=== PATIENT | female | born 1950 | race Caucasian/White ===

== ENCOUNTER 2021-11-09 19:13 | Inpatient (IN) ==
[2021-11-09] MEDS ORDERED: SODIUM CHLORIDE 0.9% 1,000 ML IV STA (19:56)
[2021-11-09 20:50] LABS: Bilirubin,Urine Negative (Negative); Blood, Urine Small mg/dL (Negative); Glucose,Urine (UA) >=500 mg/dL (Negative); Ketones,Urine Negative (Negative); Nitrite,Urine Negative (Negative); Protein,Urine >=500 MG/DL; RBC,Urine <1 /HPF (0-4); Urine Appearance CLEAR (Clear); Urine Color Yellow (Yellow); Urine Specific Gravity 1.028 (1.001-1.035); Urine Urobilinogen < 2.0 EU/DL (<2.0)
[2021-11-09 21:04] LABS: Barbiturates Screen,Urine Negative (Negative); Benzodiazepines Screen,Urine Negative (Negative); Cannabinoid Screen,Urine Negative (Negative); Opiate Screen,Urine Negative (Negative); Phencyclidine Screen,Urine Negative (Negative)
[2021-11-09 21:08] LABS: Alanine Aminotransferase 12 U/L (13-56); Albumin 2.9 G/DL (3.4-5.0); Alkaline Phosphatase 48 U/L (45-117); Aspartate Amino Transferase 15 U/L (0-37); Blood Urea Nitrogen 34 MG/DL (7-18); Calcium 8.5 MG/DL (8.5-10.1); Carbon Dioxide 24 MMOL/L (21-32); Estimated Glom Filtration Rate 35 ML/MIN; Glucose 349 MG/DL (74-106); Osmolality,Calculated 296.7 MOS/KG (273-304); Sodium 138 MMOL/L (136-145); Total Protein 7.4 G/DL (6.4-8.2)
[2021-11-09] MEDS ORDERED: cefTRIAXone 1,000 MG in SODIUM CHLORIDE 0.9% 100 ML IV STA (21:18)
[2021-11-09] MEDS ORDERED: DEXAMETHASONE 4 MG/1 ML VIAL IV STA (22:22)
[2021-11-09 22:51] LABS: Basophils % 0.2 % (0.0-0.8); Hematocrit 44.2 VOL% (35.7-47.0); Hemoglobin 13.7 GM/DL (12.0-16.0); Immature Granulocytes % 0.5 %; Immature Granulocytes Absolute 0.03 #; Lymphocytes # 1.2 10*3/uL (1.4-4.0); Lymphocytes % 20.2 % (21.3-54.2); Mean Corpuscular Volume 90.9 FL (87-102); Mean Platelet Volume 10.2 FL (9.6-12.0); Monocytes % 7.9 % (1.7-12.7); Neutrophils % 71.2 % (38.7-73.9); Platelet Count 213 T/CUMM (130-400); Red Blood Count 4.86 MC/CUMM (3.8-5.5); Red Cell Distribution Width 14.4 % (9.3-17.3); White Blood Count 5.7 T/CUMM (4-12)
[2021-11-09] MEDS ORDERED: ENOXAPARIN 80 MG/0.8 ML SYRINGE SUBCUT ONE (23:29)
[2021-11-09] MEDS ORDERED: DEXTROSE 10% 250 ML BAG IV PRN (23:31)
[2021-11-09] MEDS ORDERED: ACETAMINOPHEN 325 MG TABLET PO PRN (23:31)
[2021-11-09] MEDS ORDERED: guaiFENesin/DM ER 600-30 MG TABLET PO PRN (23:31)
[2021-11-09] MEDS ORDERED: NICOTINE 21 MG/24 HR PATCH TRANSDERM PRN (23:31)
[2021-11-09] MEDS ORDERED: diphenhydrAMINE CAP 25 MG CAPSULE PO PRN (23:31)
[2021-11-09] MEDS ORDERED: ONDANSETRON 4 MG/2 ML VIAL IV PRN (23:31)
[2021-11-09] MEDS ORDERED: hydrALAZINE 20 MG/1 ML VIAL IV PRN (23:31)
[2021-11-09] MEDS ORDERED: ZALEPLON 5 MG CAPSULE PO PRN (23:31)
[2021-11-09] MEDS ORDERED: GLUCAGON 1 MG VIAL IM PRN (23:31)
[2021-11-10] MEDS ORDERED: ALBUTEROL INHALER 18 GM INH PRN (00:20)
[2021-11-10] MEDS: SODIUM CHLORIDE 0.9% 1,000 ML IV SCH ×2 (02:53→15:24)
[2021-11-10] MEDS: AZITHROMYCIN INJ 500 MG in SODIUM CHLORIDE 0.9% 250 ML IV SCH (02:55)
[2021-11-10 03:24] LABS: Basophils % 0.2 % (0.0-0.8); Hematocrit 41.1 VOL% (35.7-47.0); Hemoglobin 13.1 GM/DL (12.0-16.0); Immature Granulocytes % 0.2 %; Immature Granulocytes Absolute 0.01 #; Lymphocytes # 1.2 10*3/uL (1.4-4.0); Lymphocytes % 25.2 % (21.3-54.2); Mean Corpuscular HGB Conc 31.9 GM/DL (32-36); Mean Corpuscular Volume 89.2 FL (87-102); Mean Platelet Volume 10.1 FL (9.6-12.0); Monocytes % 8.6 % (1.7-12.7); Neutrophils % 65.8 % (38.7-73.9); Platelet Count 250 T/CUMM (130-400); Red Blood Count 4.61 MC/CUMM (3.8-5.5); Red Cell Distribution Width 14.2 % (9.3-17.3); White Blood Count 4.8 T/CUMM (4-12)
[2021-11-10 03:45] LABS: Calcium 8.9 MG/DL (8.5-10.1); Osmolality,Calculated 296.3 MOS/KG (273-304); Potassium 4.2 MMOL/L (3.5-5.1)
[2021-11-10 08:30] LABS: Ferritin 141.6 ng/mL (8-252)
[2021-11-10] MEDS ORDERED: REMDESIVIR 200 MG in SODIUM CHLORIDE 0.9% 210 ML IV ONE (09:00)
[2021-11-10] MEDS: ASCORBIC ACID 500 MG TABLET PO SCH ×2 (09:03→21:20)
[2021-11-10] MEDS: FAMOTIDINE 20 MG TABLET PO SCH ×2 (09:03→21:20)
[2021-11-10] MEDS: CHOLECALCIFEROL 1,000 UNIT TABLET PO SCH (09:03)
[2021-11-10] MEDS: DEXAMETHASONE 4 MG/1 ML VIAL IV SCH (09:04)
[2021-11-10] MEDS: CETIRIZINE 10 MG TABLET PO SCH (09:04)
[2021-11-10] MEDS: PANTOPRAZOLE 40 MG TABLET PO SCH (09:04)
[2021-11-10] MEDS: ZINC GLUCONATE 50 MG TABLET PO SCH (09:04)
[2021-11-10] MEDS: amLODIPine 10 MG TABLET PO SCH (09:04)
[2021-11-10] MEDS: INSULIN REGULAR 100 UNIT/ML SUBCUT SCH ×3 (12:28→22:00)
[2021-11-10] MEDS: ALBUTEROL INHALER 18 GM INH SCH (18:05)
[2021-11-10] MEDS ORDERED: INSULIN GLARGINE 100 UNIT/ML SUBCUT SCH (21:00)
[2021-11-10] MEDS: QUEtiapine 25 MG TABLET PO SCH (21:20)
[2021-11-10] MEDS: MELATONIN 3 MG TABLET PO SCH (21:20)
[2021-11-10] MEDS: DONEPEZIL 10 MG TABLET PO SCH (21:20)
[2021-11-11] MEDS: cefTRIAXone 1,000 MG in SODIUM CHLORIDE 0.9% 100 ML IV SCH ×2 (00:21→22:16)
[2021-11-11] MEDS: ALBUTEROL INHALER 18 GM INH SCH ×4 (00:21→16:50)
[2021-11-11] MEDS: AZITHROMYCIN INJ 500 MG in SODIUM CHLORIDE 0.9% 250 ML IV SCH (01:09)
[2021-11-11] MEDS: SODIUM CHLORIDE 0.9% 1,000 ML IV SCH ×2 (01:10→14:31)
[2021-11-11 06:05] LABS: Hematocrit 36.1 VOL% (35.7-47.0); Hemoglobin 11.7 GM/DL (12.0-16.0); Immature Granulocytes % 0.2 %; Immature Granulocytes Absolute 0.01 #; Lymphocytes # 0.8 10*3/uL (1.4-4.0); Lymphocytes % 19.6 % (21.3-54.2); Mean Corpuscular HGB Conc 32.4 GM/DL (32-36); Mean Corpuscular Volume 88.5 FL (87-102); Mean Platelet Volume 11.1 FL (9.6-12.0); Monocytes % 11.8 % (1.7-12.7); Neutrophils % 68.4 % (38.7-73.9); Platelet Count 278 T/CUMM (130-400); Red Blood Count 4.08 MC/CUMM (3.8-5.5); Red Cell Distribution Width 13.9 % (9.3-17.3); White Blood Count 4.2 T/CUMM (4-12)
[2021-11-11 06:37] LABS: Alanine Aminotransferase 9 U/L (13-56); Albumin 2.3 G/DL (3.4-5.0); Alkaline Phosphatase 40 U/L (45-117); Aspartate Amino Transferase 11 U/L (0-37); Bilirubin,Total < 0.39 MG/DL (0.20-1.00); Blood Urea Nitrogen 32 MG/DL (7-18); Calcium 8.7 MG/DL (8.5-10.1); Carbon Dioxide 22 MMOL/L (21-32); Estimated Glom Filtration Rate 52 ML/MIN; Ferritin 175.3 ng/mL (8-252); Glucose 168 MG/DL (74-106); Osmolality,Calculated 289.4 MOS/KG (273-304); Potassium 3.8 MMOL/L (3.5-5.1); Sodium 140 MMOL/L (136-145); Total Protein 6.6 G/DL (6.4-8.2)
[2021-11-11] MEDS: INSULIN REGULAR 100 UNIT/ML SUBCUT SCH ×4 (09:14→22:14)
[2021-11-11] MEDS: REMDESIVIR 100 MG in SODIUM CHLORIDE 0.9% 100 ML IV SCH (09:46)
[2021-11-11] MEDS: CHOLECALCIFEROL 1,000 UNIT TABLET PO SCH (09:47)
[2021-11-11] MEDS: DEXAMETHASONE 4 MG/1 ML VIAL IV SCH (09:47)
[2021-11-11] MEDS: QUEtiapine 25 MG TABLET PO SCH ×2 (09:48→22:15)
[2021-11-11] MEDS: amLODIPine 10 MG TABLET PO SCH (09:48)
[2021-11-11] MEDS: CETIRIZINE 10 MG TABLET PO SCH (09:48)
[2021-11-11] MEDS: ASCORBIC ACID 500 MG TABLET PO SCH ×2 (09:48→22:14)
[2021-11-11] MEDS: PANTOPRAZOLE 40 MG TABLET PO SCH (09:48)
[2021-11-11] MEDS: FAMOTIDINE 20 MG TABLET PO SCH ×2 (09:49→22:14)
[2021-11-11] MEDS: FENOFIBRATE 145 MG TABLET PO SCH (09:53)
[2021-11-11] MEDS: ZINC GLUCONATE 50 MG TABLET PO SCH (09:53)
[2021-11-11] MEDS ORDERED: INSULIN GLARGINE 100 UNIT/ML SUBCUT SCH ×2 (21:00)
[2021-11-11] MEDS: DONEPEZIL 10 MG TABLET PO SCH (22:13)
[2021-11-11] MEDS: MELATONIN 3 MG TABLET PO SCH (22:14)
[2021-11-12] MEDS: AZITHROMYCIN INJ 500 MG in SODIUM CHLORIDE 0.9% 250 ML IV SCH (01:00)
[2021-11-12 05:07] LABS: Hematocrit 39.2 VOL% (35.7-47.0); Hemoglobin 12.7 GM/DL (12.0-16.0); Immature Granulocytes % 0.4 %; Immature Granulocytes Absolute 0.02 #; Lymphocytes # 0.9 10*3/uL (1.4-4.0); Mean Corpuscular HGB Conc 32.4 GM/DL (32-36); Mean Corpuscular Volume 87.5 FL (87-102); Mean Platelet Volume 10.6 FL (9.6-12.0); Monocytes % 9.1 % (1.7-12.7); Neutrophils % 73.5 % (38.7-73.9); Platelet Count 306 T/CUMM (130-400); Red Blood Count 4.48 MC/CUMM (3.8-5.5); Red Cell Distribution Width 13.9 % (9.3-17.3); White Blood Count 5.3 T/CUMM (4-12)
[2021-11-12 05:37] LABS: Alanine Aminotransferase < 9 U/L (13-56); Albumin 2.2 G/DL (3.4-5.0); Alkaline Phosphatase 39 U/L (45-117); Aspartate Amino Transferase 14 U/L (0-37); Bilirubin,Total < 0.39 MG/DL (0.20-1.00); Blood Urea Nitrogen 25 MG/DL (7-18); Calcium 8.5 MG/DL (8.5-10.1); Carbon Dioxide 22 MMOL/L (21-32); Estimated Glom Filtration Rate 67 ML/MIN; Ferritin 161.4 ng/mL (8-252); Glucose 170 MG/DL (74-106); Osmolality,Calculated 284.5 MOS/KG (273-304); Potassium 3.6 MMOL/L (3.5-5.1); Sodium 139 MMOL/L (136-145); Total Protein 6.3 G/DL (6.4-8.2)
[2021-11-12] MEDS: INSULIN REGULAR 100 UNIT/ML SUBCUT SCH ×3 (09:09→17:51)
[2021-11-12] MEDS: DEXAMETHASONE 4 MG/1 ML VIAL IV SCH (09:09)
[2021-11-12] MEDS: CHOLECALCIFEROL 1,000 UNIT TABLET PO SCH (09:10)
[2021-11-12] MEDS: amLODIPine 10 MG TABLET PO SCH (09:10)
[2021-11-12] MEDS: PANTOPRAZOLE 40 MG TABLET PO SCH (09:10)
[2021-11-12] MEDS: QUEtiapine 25 MG TABLET PO SCH (09:10)
[2021-11-12] MEDS: FENOFIBRATE 145 MG TABLET PO SCH (09:11)
[2021-11-12] MEDS: ASCORBIC ACID 500 MG TABLET PO SCH (09:11)
[2021-11-12] MEDS: ZINC GLUCONATE 50 MG TABLET PO SCH (09:11)
[2021-11-12] MEDS: FAMOTIDINE 20 MG TABLET PO SCH (09:11)
[2021-11-12] MEDS: CETIRIZINE 10 MG TABLET PO SCH (09:11)
[2021-11-12] MEDS: REMDESIVIR 100 MG in SODIUM CHLORIDE 0.9% 100 ML IV SCH (09:17)
[2021-11-12] MEDS: SODIUM CHLORIDE 0.9% 1,000 ML IV SCH (09:18)
[2021-11-12] MEDS: ALBUTEROL INHALER 18 GM INH SCH ×4 (09:26→17:53)
[2021-11-12 17:07] VITALS: BP 161/54
== END 2021-11-12 19:00 | disposition home health service (06) | DRG 177 ==
LOC: EDUNIT# → EDBD → N.ED 19:13 → N.TELEN 11-10 05:48 → INTOOBSV 11-10 06:31 → OBSVTOIN 11-10 06:31
PROVIDERS: ADMIT Internal Medicine; ATTEND Internal Medicine

== ENCOUNTER 2022-08-29 15:13 | Inpatient (IN) ==
[2022-08-29] MEDS ORDERED: DEXTROSE 50% 25 GM/50 ML SYRINGE IV ONE ×2 (15:18→19:44)
[2022-08-29 17:20] LABS: Basophils % 0.1 % (0.0-0.8); Eosinophils % 0.3 % (0.00-10.9); Immature Granulocytes % 0.3 %; Immature Granulocytes Absolute 0.02 #; Lymphocytes # 0.9 10*3/uL (1.4-4.0); Lymphocytes % 12.6 % (21.3-54.2); Mean Corpuscular HGB Conc 31.4 GM/DL (32-36); Mean Corpuscular Volume 92.1 FL (87-102); Mean Platelet Volume 9.8 FL (9.6-12.0); Monocytes # 0.5 10*3/uL (0.11-0.8); Monocytes % 6.5 % (1.7-12.7); Neutrophils % 80.2 % (38.7-73.9); Platelet Count 393 T/CUMM (130-400); White Blood Count 6.9 T/CUMM (4-12)
[2022-08-29 17:53] LABS: Albumin 2.8 G/DL (3.4-5.0); Bilirubin,Total 0.4 MG/DL (0.20-1.00); Calcium 9.3 MG/DL (8.5-10.1); Osmolality,Calculated 282.8 MOS/KG (273-304); Potassium 4.1 MMOL/L (3.5-5.1); Thyroid Stimulating Hormone 0.865 uIU/ml (0.358-3.74); Total Protein 6.6 G/DL (6.4-8.2)
[2022-08-29] MEDS ORDERED: PIPERACILLIN/TAZOBACTAM 3,375 MG in SODIUM CHLORIDE 0.9% 100 ML IV STA (18:10)
[2022-08-29 18:25] LABS: INR 1.1; PT Patient Result 12.2 SECS (10.1-12.1); Partial Thromboplastin Time 27.9 SECS (23.7-32.9)
[2022-08-29] MEDS ORDERED: DEXTROSE 50% 25 GM/50 ML VIAL IV STA (18:37)
[2022-08-29] MEDS: DEXTROSE 5% NACL 0.45% 1,000 ML IV SCH (18:38)
[2022-08-29] MEDS ORDERED: ACETAMINOPHEN 325 MG TABLET PO PRN (19:29)
[2022-08-29] MEDS ORDERED: ONDANSETRON 4 MG/2 ML VIAL IV PRN (19:29)
[2022-08-29] MEDS ORDERED: ENOXAPARIN 40 MG/0.4 ML SYRINGE SUBCUT SCH (19:30)
[2022-08-29] MEDS ORDERED: hydrALAZINE 20 MG/1 ML VIAL IV PRN (19:35)
[2022-08-29] MEDS ORDERED: ENOXAPARIN 30 MG/0.3 ML SYRINGE SUBCUT ONE (21:30)
[2022-08-29] MEDS: APIXABAN 2.5 MG TABLET PO SCH (21:34)
[2022-08-29 21:46] LABS: Barbiturates Screen,Urine Negative (Negative); Benzodiazepines Screen,Urine Negative (Negative); Cannabinoid Screen,Urine Negative (Negative); Opiate Screen,Urine Positive (Negative); Phencyclidine Screen,Urine Negative (Negative)
[2022-08-29 21:50] LABS: Bilirubin,Urine Negative (Negative); Blood, Urine Moderate mg/dL (Negative); Glucose,Urine (UA) >=500 mg/dL (Negative); Ketones,Urine Negative (Negative); Mucus,Urine Occasional /LPF (Occasional); Nitrite,Urine Negative (Negative); Protein,Urine 30 mg/dL (Negative); RBC,Urine 22 /HPF (0-4); Squamous Epithelial Cell,Urine Occasional /HPF (0-10); Urine Appearance Slightly Hazy (Clear); Urine Color Yellow (Yellow); Urine Specific Gravity 1.012 (1.001-1.035); Urine Urobilinogen < 2.0 eU/dL (<2.0)
[2022-08-30] MEDS: PIPERACILLIN/TAZOBACTAM 3,375 MG in SODIUM CHLORIDE 0.9% 100 ML IV SCH ×3 (02:37→17:25)
[2022-08-30 05:11] LABS: Basophils % 0.1 % (0.0-0.8); Eosinophils % 0.1 % (0.00-10.9); Hematocrit 33.9 VOL% (35.7-47.0); Hemoglobin 10.6 GM/DL (12.0-16.0); Immature Granulocytes % 0.4 %; Immature Granulocytes Absolute 0.04 #; Lymphocytes % 10.2 % (21.3-54.2); Mean Corpuscular HGB Conc 31.3 GM/DL (32-36); Mean Corpuscular Volume 91.6 FL (87-102); Monocytes # 0.7 10*3/uL (0.11-0.8); Monocytes % 7.1 % (1.7-12.7); Neutrophils % 82.1 % (38.7-73.9); Platelet Count 341 T/CUMM (130-400); Red Cell Distribution Width 16.5 % (9.3-17.3); White Blood Count 9.6 T/CUMM (4-12)
[2022-08-30 05:39] LABS: Alanine Aminotransferase < 9 U/L (13-56); Albumin 2.5 G/DL (3.4-5.0); Alkaline Phosphatase 71 U/L (45-117); Aspartate Amino Transferase 9 U/L (0-37); Blood Urea Nitrogen 12 MG/DL (7-18); Calcium 8.8 MG/DL (8.5-10.1); Carbon Dioxide 25 MMOL/L (21-32); Chloride 107 MMOL/L (98-107); Cholesterol 238 MG/DL (50-200); Glucose 224 MG/DL (74-106); HDL Cholesterol 53 MG/DL (40-60); Osmolality,Calculated 287.3 MOS/KG (273-304); Potassium 3.7 MMOL/L (3.5-5.1); Risk Ratio 4.49; Sodium 141 MMOL/L (136-145); Triglycerides 132 MG/DL (2-150); VLDL Cholesterol 26.4 MG/DL
[2022-08-30] MEDS: APIXABAN 2.5 MG TABLET PO SCH ×2 (09:32→21:57)
[2022-08-30] MEDS: DEXTROSE 5% NACL 0.45% 1,000 ML IV SCH (09:32)
[2022-08-30] MEDS: FENOFIBRATE 145 MG TABLET PO SCH (09:32)
[2022-08-30] MEDS: amLODIPine 10 MG TABLET PO SCH (09:32)
[2022-08-30] MEDS: PANTOPRAZOLE 40 MG TABLET PO SCH (09:32)
[2022-08-30 10:44] LABS: % Iron Saturation 12.3 % (18-50)
[2022-08-30 11:07] LABS: Folate 5.63 NG/ML (5.38-24.0)
[2022-08-30] MEDS: INSULIN REGULAR 100 UNIT/ML SUBCUT SCH ×2 (16:30→21:57)
[2022-08-30] MEDS: SODIUM CHLORIDE 0.9% 1,000 ML IV SCH (17:10)
[2022-08-30] MEDS: ZINC OXIDE 16% PASTE 57 GM TUBE TOP SCH ×2 (22:03→22:04)
[2022-08-31] MEDS: PIPERACILLIN/TAZOBACTAM 3,375 MG in SODIUM CHLORIDE 0.9% 100 ML IV SCH ×3 (01:35→17:34)
[2022-08-31] MEDS ORDERED: INFLUENZA VIRUS VACCINE 0.5 ML SYRINGE IM ONE (09:00)
[2022-08-31 10:08] LABS: Basophils % 0.2 % (0.0-0.8); Eosinophils # 0.1 10*3/uL (0.0-0.87); Eosinophils % 1.1 % (0.00-10.9); Hematocrit 29.4 VOL% (35.7-47.0); Hemoglobin 9.6 GM/DL (12.0-16.0); Immature Granulocytes % 0.4 %; Immature Granulocytes Absolute 0.02 #; Lymphocytes # 1.3 10*3/uL (1.4-4.0); Lymphocytes % 24.1 % (21.3-54.2); Mean Corpuscular HGB Conc 32.7 GM/DL (32-36); Mean Corpuscular Volume 89.9 FL (87-102); Mean Platelet Volume 9.3 FL (9.6-12.0); Monocytes # 0.5 10*3/uL (0.11-0.8); Monocytes % 9.2 % (1.7-12.7); Platelet Count 327 T/CUMM (130-400); Red Blood Count 3.27 MC/CUMM (3.8-5.5); Red Cell Distribution Width 16.2 % (9.3-17.3); White Blood Count 5.6 T/CUMM (4-12)
[2022-08-31 10:25] LABS: Calcium 8.2 MG/DL (8.5-10.1); Osmolality,Calculated 288.7 MOS/KG (273-304); Potassium 3.1 MMOL/L (3.5-5.1)
[2022-08-31] MEDS: INSULIN REGULAR 100 UNIT/ML SUBCUT SCH ×4 (10:29→20:05)
[2022-08-31] MEDS: APIXABAN 2.5 MG TABLET PO SCH (10:32)
[2022-08-31] MEDS: PANTOPRAZOLE 40 MG TABLET PO SCH (10:32)
[2022-08-31] MEDS: amLODIPine 10 MG TABLET PO SCH (10:32)
[2022-08-31] MEDS: FENOFIBRATE 145 MG TABLET PO SCH (10:33)
[2022-08-31] MEDS: ENOXAPARIN 40 MG/0.4 ML SYRINGE SUBCUT SCH (10:34)
[2022-08-31] MEDS ORDERED: FERRIC GLUCONATE COMPLEX 125 MG in SODIUM CHLORIDE 0.9% 100 ML IV ONE (14:00)
[2022-08-31] MEDS: POTASSIUM CHLORIDE RIDER 10 MEQ/100 ML PREMIX IV SCH ×2 (14:33→15:52)
[2022-08-31] MEDS: SODIUM CHLORIDE 0.9% 1,000 ML IV SCH (14:37)
[2022-08-31] MEDS: ZINC OXIDE 16% PASTE 57 GM TUBE TOP SCH ×2 (17:26→22:51)
[2022-09-01] MEDS: PIPERACILLIN/TAZOBACTAM 3,375 MG in SODIUM CHLORIDE 0.9% 100 ML IV SCH ×3 (02:06→23:10)
[2022-09-01 05:27] LABS: Basophils % 0.2 % (0.0-0.8); Eosinophils # 0.1 10*3/uL (0.0-0.87); Eosinophils % 1.1 % (0.00-10.9); Hematocrit 30.1 VOL% (35.7-47.0); Hemoglobin 9.7 GM/DL (12.0-16.0); Immature Granulocytes % 0.4 %; Immature Granulocytes Absolute 0.02 #; Lymphocytes # 1.1 10*3/uL (1.4-4.0); Lymphocytes % 19.2 % (21.3-54.2); Mean Corpuscular HGB Conc 32.2 GM/DL (32-36); Mean Corpuscular Volume 90.4 FL (87-102); Monocytes # 0.5 10*3/uL (0.11-0.8); Monocytes % 8.1 % (1.7-12.7); Platelet Count 350 T/CUMM (130-400); Red Blood Count 3.33 MC/CUMM (3.8-5.5); Red Cell Distribution Width 16.1 % (9.3-17.3); White Blood Count 5.5 T/CUMM (4-12)
[2022-09-01 05:34] LABS: Calcium 8.2 MG/DL (8.5-10.1); Osmolality,Calculated 283.7 MOS/KG (273-304)
[2022-09-01 05:44] LABS: Calcium 8.3 MG/DL (8.5-10.1); Potassium 3.4 MMOL/L (3.5-5.1)
[2022-09-01] MEDS: POTASSIUM CHLORIDE RIDER 10 MEQ/100 ML PREMIX IV PRN ×4 (05:54→17:51)
[2022-09-01] MEDS: INSULIN REGULAR 100 UNIT/ML SUBCUT SCH ×4 (08:23→22:10)
[2022-09-01] MEDS: ENOXAPARIN 40 MG/0.4 ML SYRINGE SUBCUT SCH (11:19)
[2022-09-01] MEDS: amLODIPine 10 MG TABLET PO SCH (11:19)
[2022-09-01] MEDS: PANTOPRAZOLE 40 MG TABLET PO SCH (11:19)
[2022-09-01] MEDS: FENOFIBRATE 145 MG TABLET PO SCH (11:20)
[2022-09-01] MEDS: ZINC OXIDE 16% PASTE 57 GM TUBE TOP SCH ×2 (11:20→22:10)
[2022-09-01] MEDS: SODIUM CHLORIDE 0.9% 1,000 ML IV SCH (11:46)
[2022-09-01 12:11] LABS: Mycoplasma pneumoniae Ab Inter SEE COMMENTS; Mycoplasma pneumoniae Ab, IgG Positive (Negative); Mycoplasma pneumoniae Ab, IgM Negative (Negative)
[2022-09-01] MEDS ORDERED: MAGNESIUM SULF RIDER 2 GM/50 ML PREMIX IV ONE (13:56)
[2022-09-01] MEDS: DEXTROSE 5% KCL 20 MEQ 20 MEQ/1,000 ML BAG IV SCH (17:50)
[2022-09-02] MEDS: PIPERACILLIN/TAZOBACTAM 3,375 MG in SODIUM CHLORIDE 0.9% 100 ML IV SCH ×3 (06:06→23:15)
[2022-09-02] MEDS: INSULIN REGULAR 100 UNIT/ML SUBCUT SCH ×4 (07:52→20:42)
[2022-09-02 08:31] LABS: Basophils % 0.5 % (0.0-0.8); Eosinophils # 0.1 10*3/uL (0.0-0.87); Eosinophils % 3.5 % (0.00-10.9); Hematocrit 30.3 VOL% (35.7-47.0); Hemoglobin 9.7 GM/DL (12.0-16.0); Immature Granulocytes % 0.3 %; Immature Granulocytes Absolute 0.01 #; Lymphocytes # 1.6 10*3/uL (1.4-4.0); Lymphocytes % 43.1 % (21.3-54.2); Mean Corpuscular Volume 89.9 FL (87-102); Mean Platelet Volume 9.1 FL (9.6-12.0); Monocytes # 0.5 10*3/uL (0.11-0.8); Monocytes % 12.5 % (1.7-12.7); Neutrophils % 40.1 % (38.7-73.9); Platelet Count 336 T/CUMM (130-400); Red Blood Count 3.37 MC/CUMM (3.8-5.5); White Blood Count 3.8 T/CUMM (4-12)
[2022-09-02 08:45] LABS: Calcium 8.1 MG/DL (8.5-10.1); Osmolality,Calculated 272.5 MOS/KG (273-304); Potassium 3.7 MMOL/L (3.5-5.1)
[2022-09-02] MEDS: ENOXAPARIN 40 MG/0.4 ML SYRINGE SUBCUT SCH (10:13)
[2022-09-02] MEDS: ZINC OXIDE 16% PASTE 57 GM TUBE TOP SCH ×2 (10:14→23:16)
[2022-09-02] MEDS: FENOFIBRATE 145 MG TABLET PO SCH (10:14)
[2022-09-02] MEDS: amLODIPine 10 MG TABLET PO SCH (10:14)
[2022-09-02] MEDS: PANTOPRAZOLE 40 MG TABLET PO SCH (10:14)
[2022-09-03 05:32] LABS: Basophils % 0.3 % (0.0-0.8); Eosinophils # 0.1 10*3/uL (0.0-0.87); Eosinophils % 4.1 % (0.00-10.9); Hematocrit 35.2 VOL% (35.7-47.0); Hemoglobin 11.3 GM/DL (12.0-16.0); Immature Granulocytes % 0.9 %; Immature Granulocytes Absolute 0.03 #; Lymphocytes # 1.3 10*3/uL (1.4-4.0); Lymphocytes % 40.8 % (21.3-54.2); Mean Corpuscular HGB Conc 32.1 GM/DL (32-36); Mean Corpuscular Volume 89.3 FL (87-102); Mean Platelet Volume 9.7 FL (9.6-12.0); Monocytes # 0.5 10*3/uL (0.11-0.8); Monocytes % 15.2 % (1.7-12.7); Neutrophils % 38.7 % (38.7-73.9); Platelet Count 375 T/CUMM (130-400); Red Blood Count 3.94 MC/CUMM (3.8-5.5); Red Cell Distribution Width 15.7 % (9.3-17.3); White Blood Count 3.2 T/CUMM (4-12)
[2022-09-03 05:52] LABS: Calcium 8.3 MG/DL (8.5-10.1); Osmolality,Calculated 261.4 MOS/KG (273-304); Potassium 3.4 MMOL/L (3.5-5.1)
[2022-09-03] MEDS: DEXTROSE 5% KCL 20 MEQ 20 MEQ/1,000 ML BAG IV SCH ×2 (06:20→06:50)
[2022-09-03] MEDS: PIPERACILLIN/TAZOBACTAM 3,375 MG in SODIUM CHLORIDE 0.9% 100 ML IV SCH (06:20)
[2022-09-03] MEDS: INSULIN REGULAR 100 UNIT/ML SUBCUT SCH ×4 (07:41→20:29)
[2022-09-03] MEDS: amLODIPine 10 MG TABLET PO SCH (10:08)
[2022-09-03] MEDS: FENOFIBRATE 145 MG TABLET PO SCH (10:08)
[2022-09-03] MEDS: PANTOPRAZOLE 40 MG TABLET PO SCH (10:08)
[2022-09-03] MEDS: ZINC OXIDE 16% PASTE 57 GM TUBE TOP SCH ×2 (10:22→21:02)
[2022-09-03] MEDS: cefTRIAXone 1,000 MG in SODIUM CHLORIDE 0.9% 100 ML IV SCH (16:53)
[2022-09-03] MEDS: AZITHROMYCIN INJ 500 MG in SODIUM CHLORIDE 0.9% 250 ML IV SCH (18:09)
[2022-09-04 05:34] LABS: INR 1.1; PT Patient Result 11.7 SECS (10.1-12.1)
[2022-09-04] MEDS: DEXTROSE 5% KCL 20 MEQ 20 MEQ/1,000 ML BAG IV SCH (06:16)
[2022-09-04] MEDS: INSULIN REGULAR 100 UNIT/ML SUBCUT SCH ×4 (08:26→21:39)
[2022-09-04 10:39] LABS: Basophils % 0.3 % (0.0-0.8); Eosinophils # 0.1 10*3/uL (0.0-0.87); Eosinophils % 2.8 % (0.00-10.9); Hematocrit 34.3 VOL% (35.7-47.0); Immature Granulocytes % 0.3 %; Immature Granulocytes Absolute 0.01 #; Lymphocytes # 1.4 10*3/uL (1.4-4.0); Lymphocytes % 43.8 % (21.3-54.2); Mean Corpuscular HGB Conc 32.1 GM/DL (32-36); Mean Corpuscular Volume 89.1 FL (87-102); Mean Platelet Volume 10.2 FL (9.6-12.0); Monocytes # 0.5 10*3/uL (0.11-0.8); Monocytes % 16.3 % (1.7-12.7); Neutrophils % 36.5 % (38.7-73.9); Platelet Count 386 T/CUMM (130-400); Red Blood Count 3.85 MC/CUMM (3.8-5.5); Red Cell Distribution Width 15.9 % (9.3-17.3); White Blood Count 3.2 T/CUMM (4-12)
[2022-09-04 10:47] LABS: Calcium 8.5 MG/DL (8.5-10.1); Osmolality,Calculated 265.2 MOS/KG (273-304); Potassium 3.4 MMOL/L (3.5-5.1)
[2022-09-04] MEDS: FENOFIBRATE 145 MG TABLET PO SCH (10:48)
[2022-09-04] MEDS: ZINC OXIDE 16% PASTE 57 GM TUBE TOP SCH ×2 (10:48→21:52)
[2022-09-04] MEDS: amLODIPine 10 MG TABLET PO SCH (10:48)
[2022-09-04] MEDS: PANTOPRAZOLE 40 MG TABLET PO SCH (10:48)
[2022-09-04 11:40] LABS: Anisocytosis 1+; Band Neutrophils 2 % (0-10); Burr Cells 1+; Eosinophils 5 % (0-10); Lymphocytes 41 % (20-55); Nucleated Red Blood Cells 1 /100 WBC (0-5); Platelet Estimate Normal; Poikilocytosis Slight; Total Cells Counted 100
[2022-09-04] MEDS: LACTATED RINGERS 1,000 ML IV SCH (12:48)
[2022-09-04] MEDS: AZITHROMYCIN INJ 500 MG in SODIUM CHLORIDE 0.9% 250 ML IV SCH (16:25)
[2022-09-04] MEDS: cefTRIAXone 1,000 MG in SODIUM CHLORIDE 0.9% 100 ML IV SCH (21:51)
[2022-09-05] MEDS: DEXTROSE 5% KCL 20 MEQ 20 MEQ/1,000 ML BAG IV SCH (04:50)
[2022-09-05 05:13] LABS: Basophils % 0.2 % (0.0-0.8); Eosinophils # 0.1 10*3/uL (0.0-0.87); Eosinophils % 1.5 % (0.00-10.9); Hematocrit 30.8 VOL% (35.7-47.0); Hemoglobin 10.1 GM/DL (12.0-16.0); Immature Granulocytes % 0.4 %; Immature Granulocytes Absolute 0.02 #; Lymphocytes # 1.4 10*3/uL (1.4-4.0); Lymphocytes % 30.8 % (21.3-54.2); Mean Corpuscular HGB Conc 32.8 GM/DL (32-36); Mean Platelet Volume 9.9 FL (9.6-12.0); Monocytes # 0.5 10*3/uL (0.11-0.8); Monocytes % 11.1 % (1.7-12.7); Platelet Count 353 T/CUMM (130-400); Red Cell Distribution Width 15.3 % (9.3-17.3); White Blood Count 4.5 T/CUMM (4-12)
[2022-09-05 05:32] LABS: Blood Urea Nitrogen < 1 MG/DL (7-18); Calcium 8.1 MG/DL (8.5-10.1); Carbon Dioxide 25 MMOL/L (21-32); Chloride 106 MMOL/L (98-107); Glucose 167 MG/DL (74-106); Osmolality,Calculated 276.9 MOS/KG (273-304); Potassium 3.4 MMOL/L (3.5-5.1); Sodium 139 MMOL/L (136-145)
[2022-09-05] MEDS: INSULIN REGULAR 100 UNIT/ML SUBCUT SCH ×4 (07:22→22:00)
[2022-09-05] MEDS: FENOFIBRATE 145 MG TABLET PO SCH (09:01)
[2022-09-05] MEDS: amLODIPine 10 MG TABLET PO SCH (09:01)
[2022-09-05] MEDS: PANTOPRAZOLE 40 MG TABLET PO SCH (09:01)
[2022-09-05] MEDS: ZINC OXIDE 16% PASTE 57 GM TUBE TOP SCH ×2 (09:02→21:55)
[2022-09-05] MEDS: LACTATED RINGERS 1,000 ML IV SCH (10:19)
[2022-09-05] MEDS: AZITHROMYCIN INJ 500 MG in SODIUM CHLORIDE 0.9% 250 ML IV SCH (17:05)
[2022-09-05] MEDS: cefTRIAXone 1,000 MG in SODIUM CHLORIDE 0.9% 100 ML IV SCH (21:55)
[2022-09-06] MEDS: DEXTROSE 5% KCL 20 MEQ 20 MEQ/1,000 ML BAG IV SCH ×2 (04:22→16:19)
[2022-09-06] MEDS: POTASSIUM CHLORIDE RIDER 10 MEQ/100 ML PREMIX IV PRN ×3 (10:06→16:54)
[2022-09-06] MEDS: FENOFIBRATE 145 MG TABLET PO SCH (10:07)
[2022-09-06] MEDS: PANTOPRAZOLE 40 MG TABLET PO SCH (10:07)
[2022-09-06] MEDS: amLODIPine 10 MG TABLET PO SCH (10:07)
[2022-09-06] MEDS: ZINC OXIDE 16% PASTE 57 GM TUBE TOP SCH ×2 (10:07→22:38)
[2022-09-06] MEDS: INSULIN REGULAR 100 UNIT/ML SUBCUT SCH ×4 (10:08→22:38)
[2022-09-06] MEDS: AZITHROMYCIN INJ 500 MG in SODIUM CHLORIDE 0.9% 250 ML IV SCH (17:50)
[2022-09-06] MEDS: cefTRIAXone 1,000 MG in SODIUM CHLORIDE 0.9% 100 ML IV SCH (22:40)
[2022-09-07 04:59] LABS: Basophils % 0.3 % (0.0-0.8); Eosinophils # 0.1 10*3/uL (0.0-0.87); Eosinophils % 1.5 % (0.00-10.9); Hematocrit 30.3 VOL% (35.7-47.0); Hemoglobin 9.9 GM/DL (12.0-16.0); Immature Granulocytes % 0.3 %; Immature Granulocytes Absolute 0.01 #; Lymphocytes # 1.2 10*3/uL (1.4-4.0); Mean Corpuscular HGB Conc 32.7 GM/DL (32-36); Mean Corpuscular Volume 88.6 FL (87-102); Mean Platelet Volume 10.2 FL (9.6-12.0); Monocytes # 0.4 10*3/uL (0.11-0.8); Monocytes % 10.8 % (1.7-12.7); Neutrophils % 56.1 % (38.7-73.9); Platelet Count 333 T/CUMM (130-400); Red Blood Count 3.42 MC/CUMM (3.8-5.5); Red Cell Distribution Width 15.9 % (9.3-17.3)
[2022-09-07 05:23] LABS: Calcium 8.3 MG/DL (8.5-10.1); Osmolality,Calculated 274.5 MOS/KG (273-304); Potassium 3.9 MMOL/L (3.5-5.1)
[2022-09-07] MEDS: INSULIN REGULAR 100 UNIT/ML SUBCUT SCH ×2 (08:22→12:46)
[2022-09-07] MEDS: amLODIPine 10 MG TABLET PO SCH (09:39)
[2022-09-07] MEDS: PANTOPRAZOLE 40 MG TABLET PO SCH (09:39)
[2022-09-07] MEDS: FENOFIBRATE 145 MG TABLET PO SCH (09:43)
[2022-09-07 12:10] VITALS: BP 115/60
[2022-09-07] MEDS: ZINC OXIDE 16% PASTE 57 GM TUBE TOP SCH (13:27)
[2022-09-07] MEDS: AZITHROMYCIN INJ 500 MG in SODIUM CHLORIDE 0.9% 250 ML IV SCH (16:23)
== END 2022-09-07 16:13 | disposition hospice, home (50) | DRG 177 ==
LOC: N.ED 15:13 → N.EDINP 19:29 → N.5E 21:42
PROVIDERS: ADMIT Internal Medicine; ATTEND Internal Medicine
PROC: EGDWPEG (ICD-10-PCS; 2022-09-04 07:20)